=== PATIENT | female | born 1985 | race African-American/Black ===

== ENCOUNTER 2025-10-07 16:54 | Emergency (ER) | payer OTHER, SELFPAY ==
[2025-10-07] VITALS (13 sets, daily range): BP systolic 94–103; BP diastolic 55–68; PULSE 39–74; RESP 12; O2SAT 91–99; BMI 25.4
[2025-10-07 17:40] LABS: Alanine Aminotransferase 46 IU/L (<35); Albumin 4.6 g/dL (3.5-5.0); Albumin Globulin Ratio 1.0 (1.0-2.8); Alkaline Phosphatase 282 U/L (38-126); Blood Urea Nitrogen 23 mg/dL (7-17); Calcium 9.5 mg/dL (8.4-10.2); Carbon Dioxide 22 mmol/L (22-32); Chloride 102 mmol/L (98-107); Estimated Glomerular Filt Rate > 60 mL/min (>60); Globulin 4.4 g/dL (1.7-4.1); Glucose 229 mg/dL (70-99); HEMOLYSIS 27 (0-50); Lipase 84 U/L (23-300); Potassium 4.0 mmol/L (3.4-5.1); Sodium 136 mmol/L (137-145); Total Protein 9.0 g/dL (6.3-8.2)
[2025-10-07 17:41] LABS: Add Manual Diff / Slide Review NO; Hematocrit 40.9 % (36-46); Hemoglobin 13.5 g/dL (12.0-16.0); Lymphocytes Absolute Auto 2000 /uL (1100-4500); Mean Corpuscular HGB Conc 33.1 % (30-36); Mean Corpuscular Hemoglobin 28.1 PG (26-34); Mean Corpuscular Volume 84.7 fL (80-100); Platelet Count 125 X10^3/uL (150-400)
--- NOTE | 2025-10-07 18:42 | ED_ITS ---
HPI - General Adult General Chief complaint: Diabetic Problem Stated complaint: Diabetic, low blood glucose Time Seen by Provider: 10/07/25 16:58 Source: patient and EMS Mode of arrival: EMS History of Present Illness HPI narrative: 40-year-old female history of hepatitis and cirrhosis detox facility [facility] [place] for the past 5 days from alcohol found to have blood sugar of 37 after being given p.o. glucose had risen to 48 and D10 250 mL bag at triage prior to arrival is 252. Patient also endorses acute on chronic abd pain as she ran out of her pain medication but denies n/v/d/constipation/rectal bleeding, urinary complaints. On lantus 17u BID and humalog SSI with meals. Other than what is stated 14 pt ROS is negative. Related Data Previous Rx's ?Medication ?Instructions ?Recorded hydroxyzine HCl 25 mg tablet 25 mg PO BEDTIME #30 tabs 10/07/25 polyethylene glycol 3350 17 17 g PO DAILY #119 grams 1 12/08/24 gram/dose oral powder (Miralax) trazodone 50 mg tablet 50 mg PO BEDTIME #30 tabs Allergies Allergy/AdvReac Type Severity Reaction Status Date / Time Penicillins Allergy Anaphylaxis Verified 10/07/25 17:24 Review of Systems Review of Systems ROS Unobtainable: All systems reviewed & are unremarkable except as noted in HPI and below Patient History Social History Smoking Status: Current every day smoker Smoking Status: Current every day smoker tobacco type: cigarettes Exam Initial Vital Signs Initial Vital Signs: Vital Signs Pulse Rate 74 10/07/25 17:03 Course Orders Ordered: ED Orders 10/07/25 17:17 Complete Blood Count AUTO DIFF Stat Comprehensive Metabolic Panel Stat Lipase Stat 10/07/25 17:35 Urine Drug Screen, Rapid Stat 10/07/25 18:44 CT abdomen pelvis w con Stat Ondansetron HCl (Ondansetron 4 Mg/2 Ml Inj) 4 mg IV NOW PRN PRN Reason: Nausea And Vomiting Ondansetron HCl (Ondansetron 4 Mg Odt) 4 mg PO NOW PRN PRN Reason: Nausea And Vomiting Discontinued Medications Lactated Ringer's (Lactated Ringers) 1,000 mls @ 1,000 mls/hr IV BOLUS ONE Stop: 10/07/25 19:43 Last Infusion: 10/07/25 20:15 Dose: Infused Documented By: Admin: 10/07/25 19:07 Dose: 1,000 mls/hr Documented By: UMM Vital Signs Vital signs: Vital Signs - 8 hr 10/07/25 17:03 10/07/25 17:07 10/07/25 17:07 Pulse Rate 74 68 Respiratory Rate Blood Pressure 95/65 Pulse Oximetry 95 Oxygen Delivery Method 10/07/25 17:23 10/07/25 17:30 10/07/25 17:30 Pulse Rate 66 68 Respiratory Rate 12 Blood Pressure 95/65 103/65 Pulse Oximetry 96 97 Oxygen Delivery Method Room Air 10/07/25 18:00 10/07/25 18:00 Pulse Rate 65 Respiratory Rate Blood Pressure 98/68 Pulse Oximetry 96 Oxygen Delivery Method Room Air Medical Decision Making Lab Data 10/07/25 17:17 10/07/25 17:17 Labs: Lab Results 10/07/25 10/07/25 10/07/25 Range/Units 17:12 17:17 17:35 WBC 9.1 (4.5-11.0) X10^3/uL RBC 4.82 (4.0-5.2) X10^6/uL Hgb 13.5 (12.0-16.0) g/dL Hct 40.9 (36-46) % MCV 84.7 (80-100) fL MCH 28.1 (26-34) PG MCHC 33.1 (30-36) % RDW 15.7 H (11.6-14.8) % Plt Count 125 L (150-400) X10^3/uL Neut % (Auto) 62.8 (50-75) % Lymph % (Auto) 22.4 L (25-40) % [place] % (Auto) 5.0 (3-14) % Eos % (Auto) 7.1 H (2-4) % Baso % (Auto) 2.7 H (0-2) % Neut # (Auto) 5700 (5343-7936) /uL Lymph # (Auto) 2000 (1684-7665) /uL [place] # (Auto) 500 (0-900) /uL Eos # (Auto) 600 H (0-450) /uL Baso # (Auto) 200 H (0-100) /uL Sodium 136 L (137-145) mmol/L Potassium 4.0 (3.4-5.1) mmol/L Chloride 102 (98-107) mmol/L Carbon Dioxide 22 (22-32) mmol/L BUN 23 H (7-17) mg/dL Creatinine 0.63 (0.52-1.04) mg/dL Estimated GFR > 60 (>60) mL/min BUN/Creatinine Ratio 36.5 H (6-22) Glucose 229 H (70-99) mg/dL POC Whole Bld Glucose 252 H (70-99) mg/dL Calcium 9.5 (8.4-10.2) mg/dL Total Bilirubin 2.2 H (0.2-1.3) mg/dL AST 98 H (14-36) IU/L ALT 46 H (<35) IU/L Alkaline Phosphatase 282 H (38-126) U/L Total Protein 9.0 H (6.3-8.2) g/dL Albumin 4.6 (3.5-5.0) g/dL Globulin 4.4 H (1.7-4.1) g/dL Albumin/Globulin Ratio 1.0 (1.0-2.8) Lipase 84 (23-300) U/L U Opiates 300ng/mL cut Negative (Negative) Ur Oxycodone Screen Negative (Negative) Urine Methadone Screen Negative (Negative) Ur Barbiturates Screen Negative (Negative) U Tricyclic Antidepress Negative (Negative) Ur Phencyclidine Scrn Negative (Negative) Ur Amphetamines Screen Negative (Negative) U Methamphetamines Scrn Negative (Negative) Ur MDMA Scrn (Ecstasy) Negative (Negative) U Benzodiazepines Scrn Positive H (Negative) Urine Cocaine Screen Negative (Negative) U Marijuana (THC) Screen Negative (Negative) Urine pH Normal (Normal) Urine Specific [place] Normal (Normal) Ur Creatinine Normal (Normal) 12/23/25 Range/Units 19:28 WBC (4.5-11.0) X10^3/uL RBC (4.0-5.2) X10^6/uL Hgb (12.0-16.0) g/dL Hct (36-46) % MCV (80-100) fL MCH (26-34) PG MCHC (30-36) % RDW (11.6-14.8) % Plt Count (150-400) X10^3/uL Neut % (Auto) (50-75) % Lymph % (Auto) (25-40) % [place] % (Auto) (3-14) % Eos % (Auto) (2-4) % Baso % (Auto) (0-2) % Neut # (Auto) (3575-8569) /uL Lymph # (Auto) (3828-6746) /uL [place] # (Auto) (0-900) /uL Eos # (Auto) (0-450) /uL Baso # (Auto) (0-100) /uL Sodium (137-145) mmol/L Potassium (3.4-5.1) mmol/L Chloride (98-107) mmol/L Carbon Dioxide (22-32) mmol/L BUN (7-17) mg/dL Creatinine (0.52-1.04) mg/dL Estimated GFR (>60) mL/min BUN/Creatinine Ratio (6-22) Glucose (70-99) mg/dL POC Whole Bld Glucose 114 H D (70-99) mg/dL Calcium (8.4-10.2) mg/dL Total Bilirubin (0.2-1.3) mg/dL AST (14-36) IU/L ALT (<35) IU/L Alkaline Phosphatase (38-126) U/L Total Protein (6.3-8.2) g/dL Albumin (3.5-5.0) g/dL Globulin (1.7-4.1) g/dL Albumin/Globulin Ratio (1.0-2.8) Lipase (23-300) U/L U Opiates 300ng/mL cut (Negative) Ur Oxycodone Screen (Negative) Urine Methadone Screen (Negative) Ur Barbiturates Screen (Negative) U Tricyclic Antidepress (Negative) Ur Phencyclidine Scrn (Negative) Ur Amphetamines Screen (Negative) U Methamphetamines Scrn (Negative) Ur MDMA Scrn (Ecstasy) (Negative) U Benzodiazepines Scrn (Negative) Urine Cocaine Screen (Negative) U Marijuana (THC) Screen (Negative) Urine pH (Normal) Urine Specific [place] (Normal) Ur Creatinine (Normal) Point of Care Testing Test Results Negative Urine Dip Bedside Urine Glucose Negative Bedside Urine Bilirubin - Negative Bedside Urine Ketone - Negative Urine Specific [place] 1.010 Bedside Urine Occult Blood - Negative Bedside Urine pH 7.0 Bedside Urine Protein - Negative Bedside Urine Urobilinogen - Negative Bedside Urine Nitrite - Negative Bedside Urine Leukocytes - Negative Esterase Point of care testing: Point of Care Testing Test Results Negative Urine Dip Bedside Urine Glucose Negative Bedside Urine Bilirubin - Negative Bedside Urine Ketone - Negative Urine Specific [place] 1.010 Bedside Urine Occult Blood - Negative Bedside Urine pH 7.0 Bedside Urine Protein - Negative Bedside Urine Urobilinogen - Negative Bedside Urine Nitrite - Negative Bedside Urine Leukocytes - Negative Esterase Imaging Data CT scan - abdomen/pelvis: Radiologist's Impression: [address] [address] [address] Scan Report Signed Patient: Donna Lopez MR#: [id number] : 1985 Acct:[id number] Age/Sex: 40 / F Date of Service: 10/07/25 Loc: ED Accession Number: [id number] Procedure: CT abdomen pelvis w con Ordering Provider: José Luis Howard D.O. PROCEDURE: CT ABDOMEN PELVIS W CON INDICATIONS: abd pain TECHNIQUE: After the administration of intravenous contrast, axial sections acquired from the lung bases to the pubic symphysis. Coronal and sagittal reformats were performed. For radiation dose reduction, the following was used: automated exposure control, adjustment of mA and/or kV according to patient size. COMPARISON: None. FINDINGS: Image quality: Diagnostic. Lower Chest: No significant findings. ABDOMEN: Liver: Cirrhotic liver morphology without focal solid mass. The portal veins are patent. Gallbladder: Post cholecystectomy. Biliary ducts: Post cholecystectomy reservoir effect of the common bile duct.. Pancreas: No ductal dilation. Spleen: Splenomegaly. Type grade appearance mild which may be secondary to portal hypertension. No focal lesion. Adrenal Glands: No adrenal nodules. Kidneys and Ureters: No hydronephrosis. No solid mass. No complex renal cystic lesion which requires follow up. Stomach and Bowel: Normal colonic caliber, without significant wall thickening. Moderate stool burden in the large bowel. Normal appendix, which is retrocecal in course. Peritoneum: No abnormal intraperitoneal fluid. No free air. Ventral Wall: No significant ventral hernia. Abdominal Nodes: No retroperitoneal or mesenteric adenopathy by size criteria. Vessels: Aorta and inferior vena cava are normal in size. PELVIS: Pelvic Organs: Unremarkable. Bladder: No bladder wall thickening, accounting for underdistention. Pelvic Nodes: No enlarged lymph nodes. Miscellaneous: No inguinal hernias are seen. Bones: No aggressive osseous abnormality. IMPRESSION: Hepatic cirrhosis with findings of portal hypertension. Consider outpatient referral for enrollment in hepatocellular carcinoma screening. Moderate stool burden in the large bowel, correlate for constipation. No findings of obstruction. Otherwise no acute abnormality within the abdomen or pelvis. Dictated by: Johnnie Gannon M.D. on 10/07/2025 at 19:25 Approved by: Johnnie Gannon M.D. on 10/07/2025 at 19:29 [facility] Narrative Medical decision making narrative: All lab work, vital signs, nurse triage note, medication list, previous ER visits, and all imaging studies reviewed. WBC 9.1 hemoglobin 13.5 platelet 120 sodium 136 4.0 chloride 102 CO2 22 BUN 23 creatinine 0.63 glucose 229 and now 114 AST 98 ALT 46 phos 282 lipase 84 UDS positive for benzos. CT scan shows hepatic cirrhosis with findings portal hypertension. Moderate stool burden large bowel. Pt given Benadryl droperidol lactulose. Differential dx - liver CA, cirrhois, pancreatitis, kidney stone, kidney infection, uti. D/c home already has lactulose. Refill trazadone and hydroxyzine and to take miralax rx. Discharge Plan Departure Patient Disposition: Home Clinical Impression: Hypoglycemia, Constipation Instructions: DI for Constipation Activity Restrictions/Additional Instructions: Return with new or worsening symptoms. F/u with PCP and GI MD regarding portal hypertension next week. Take medication as directed. Prescriptions: New trazodone 50 mg tablet 50 mg PO BEDTIME Qty: 30 0RF hydroxyzine HCl 25 mg tablet 25 mg PO BEDTIME Qty: 30 0RF polyethylene glycol 3350 [Miralax] 17 gram/dose powder 17 g PO DAILY Qty: 119 0RF Stand Alone Forms: Patient Portal/API
[2025-10-07] MEDS: LACTATED RINGERS 1,000 ML 1000 ML IV (19:07)
[2025-10-07 20:01] LABS: UR Morphine/Opiate cutoff 300 Negative (Negative); Ur Specific Gravity Normal (Normal); Urine MDMA Negative (Negative); Urine Methamphetamines Negative (Negative); Urine Tetrahydrocannabinol Negative (Negative); Urine Tricyclic Antidepressant Negative (Negative)
[2025-10-07] MEDS: droPERidol 2.5 MG/ML VIAL IV (21:16)
[2025-10-07] MEDS: diphenhydrAMINE 50 MG/ML VIAL IV (21:16)
[2025-10-07] MEDS: LACTULOSE 20 GM/30 ML SOLUTION PO (21:17)
== END 2025-10-07 22:08 | disposition home or self-care (01) ==
PROVIDERS: Emergency Provider Family Medicine
DX: E11.649 Type 2 diabetes mellitus with hypoglycemia without coma (principal); K59.00 Constipation, unspecified; F17.200 Nicotine dependence, unspecified, uncomplicated
CPT/HCPCS: 74177; 80053; 80305; 81003; 81025; 82962; 83690; 85025; 96361; 96374; 96375; 99284; J1200; J1790; J7120; Q9967